=== PATIENT | male | born 1980 | race African-American/Black ===

== ENCOUNTER 2016-04-20 12:16 | Emergency (ER) | payer BC ==
[~2016-04-20] VITALS: Ht 180.3 cm; Wt 93.0 kg
[~2016-04-20 12:16] MED LIST: HYDR-3533 PO; INDO25CA PO; INDO50CA PO; PRED-503 PO
[2016-04-20 12:19] VITALS: BP 136/76; PULSE 84; RESP 18; TEMP 97.9; O2SAT 97
[2016-04-20] MEDS ORDERED: HYDR-3533 PO (14:43)
[2016-04-20] MEDS ORDERED: PRED-503 PO (14:43)
[2016-04-20] MEDS ORDERED: INDO50CA PO (14:43)
[2016-04-20] MEDS ORDERED: ALLO100T PO (14:53)
--- NOTE | 2016-04-20 15:09 | PD ---
HPI Chief Complaint: Pain: Acute or Chronic Time Seen by Provider: 14:30 Travel History International Travel<30 days: No Contact w/Intl Traveler<30days: No Traveled to known affect area: No History of Present Illness HPI Patient is a 35-year-old male with a history of gout since the age of 17 presenting with acute gout flare. He reports pain in the bilateral great toes and the right mid toe. Mild edema. No loss of range of motion. He denies any trauma or injury. Denies fever and chills. He states that with the exception of the great toe this is his usual location for gout. He states that he sometimes gets it in the ankles as well but they are not bothering him currently. He denies any open wounds. He denies any history of diabetes or immunocompromise states. PFSH Past Medical History Gout: Yes Social History Alcohol Use: Yes ([facility] [address]) Tobacco Use: Yes Substance Use: No Allergies-Medications (Allergen,Severity, Reaction): Coded Allergies: No Known Allergies (Unverified , 04/20/16) Reported Meds & Prescriptions Reported Meds & Active Scripts Active Allopurinol 100 Mg Tab 100 Mg PO DAILY Lortab (Hydrocodone-Acetaminophen) 5-325 Mg Tab 1 Tab PO Q4H PRN Deltasone (Prednisone) 20 Mg Tab 20 Mg PO BID Indomethacin 50 Mg Cap 50 Mg PO TID Take with food, milk, or antacids to decrease stomach adverse effects. Review of Systems Except as stated in HPI: all other systems reviewed are Neg Physical Exam Narrative GENERAL: Well-developed and well-nourished adult male in no acute distress. SKIN: Warm and dry. Good turgor without tenting. HEAD: Normocephalic and atraumatic. EYES: PERRL bilaterally, 5mm. EOMI bilaterally. No injection or icterus present. No proptosis. Lids without edema or erythema. NECK: Supple, no midline tenderness, crepitus or step-offs. Trachea midline, no JVD. No cervical or facial lymphadenopathy. CARDIOVASCULAR: Regular rate and rhythm without murmurs, rubs, clicks or gallops. Dorsalis pedis and posterior tibial pulses 2+ bilaterally. Capillary refill less than 2 seconds distal tip of all 10 toes. RESPIRATORY: Clear to auscultation bilaterally with symmetrical rise and fall, no distress or use of accessory muscles. MUSCULOSKELETAL: Patient has some edema, mild erythema and warmth at the MTP joints bilateral great toes. The right third digit has a small amount of edema and warmth proximally with some tenderness to palpation but has normal range of motion in all 10 toes. The pain is swelling on the dorsum of the foot or in the ankle and normal range of motion in the bilateral ankles. Patient has no open wounds on the feet. Antalgic gait. Patient freely moving all four extremities spontaneously. Extremities without clubbing or cyanosis. No obvious deformities. NEUROLOGIC: CN II-XII grossly intact. Awake and alert. Motor grossly within normal limits. Normal speech. PSYCHIATRIC: Appropriate mood and affect; insight and judgment normal. Data Data Last Documented VS Vital Signs Date Time Temp Pulse Resp B/P Pulse Ox O2 Delivery O2 Flow Rate FiO2 04/20/16 12:19 97.9 84 18 136/76 97 Room Air MDM Medical Decision Making Medical Screen Exam Complete: Yes Emergency Medical Condition: Yes Differential Diagnosis Gout versus pseudogout versus cellulitis versus septic joint unlikely Narrative Course A 35-year-old male with a history of gout was been noncompliant with control medications in the past presenting with history and physical suggestive of gout flare. He is afebrile and nontoxic. Denies any injuries. No open wounds. The areas in the normal area of his gout flares. He is neurovascular intact. Patient was given prescription for steroids, indomethacin and a short course of Lortab. I made it clear to the patient that we cannot continue to treat his acute gout with a medicines here in he was understanding. Ice 20 to him that we will give him a prescription for allopurinol to begin once the flare is over to prevent new flares that he needs to see a PCP to have this managed chronically. He acknowledged his understanding. Patient was told to return if symptoms worsen or he develops any inability to bear weight, loss of range of motion, fevers.See discharge paperwork for further instructions. The plan was discussed with the patient who acknowledged their understanding and agreement. Reinforced the follow-up with primary care is critically important. Patient instructed on emergent conditions that should prompt return to ED. Diagnosis Primary Impression: Acute gouty arthritis Patient Instructions: General Instructions, Gout (ED) Additional Instructions: Take medications as prescribed Your medications may cause drowsiness. Do not take with alcohol or sedatives. Do not operate a motor vehicle or heavy machinery while on medication. Begin taking the allopurinol after gout flare resolves, this medicine will help to prevent gout flares Apply ice every 1 to 2 hours as needed for pain Avoid maneuvers that aggravate pain Elevate when at rest Follow-up with PCP in 2-3 days Return to the ED for any acute worsening of symptoms Med/Other Pt SpecificInfo: Prescription(s) given Scripts Allopurinol 100 Mg [id number] Mg PO DAILY #30 TAB Ref 0 Prov:Chio Gavin MD 04/20/16 Hydrocodone-Acetaminophen (Lortab)5-325 Mg Tab1 Tab PO Q4H PRN (PAIN) #12 TAB Prov:Chio Gavin MD 04/20/16 Prednisone (Deltasone)20 Mg Tab20 Mg PO BID #10 TAB Prov:Chio Gavin MD 04/20/16 Indomethacin 50 Mg Cap50 Mg PO TID #30 CAP Ref 0 Take with food, milk, or antacids to decrease stomach adverse effects. Prov:Chio Gavin MD 04/20/16 Disposition: 01 DISCHARGE HOME Condition: Stable Alek Morfin III Apr 20, 2016 15:09
== END 2016-04-20 15:22 | disposition home or self-care (01) ==
LOC: NEPB 12:16
DX: M1A.9XX0 Chronic gout, unspecified, without tophus (tophi) (principal); Z72.0 Tobacco use
CPT/HCPCS: 99283

== ENCOUNTER 2016-05-25 14:07 | Emergency (ER) | payer BC ==
[~2016-05-25] VITALS: Ht 180.3 cm; Wt 93.0 kg
[~2016-05-25 14:07] MED LIST changes: +ALLO100T PO; -INDO25CA PO
[2016-05-25 14:10] VITALS: BP 123/73; PULSE 92; RESP 16; TEMP 98.3; O2SAT 96
[2016-05-25] MEDS ORDERED: SODIUM CHLOR 0.9% 1000 ML INJ 1,000 ML IV ONE (14:30)
[2016-05-25] MEDS ORDERED: KETOROLAC TROMETHAMINE 30 MG/ML (IVP) VIAL IV PUSH ONE (14:30)
--- NOTE | 2016-05-25 14:44 | PD ---
HPI Chief Complaint: Skin Problem Time Seen by Provider: 14:38 Travel History International Travel<30 days: No Contact w/Intl Traveler<30days: No Traveled to known affect area: No History of Present Illness HPI Patient comes in complaining of left elbow pain ongoing for approximately 2 weeks. Patient states he thinks this is his bursitis flaring up. Patient states today pain got so bad he is unable to move his elbow. He denies any fevers with this. Patient denies taking medication or doing anything else for it. Denies any trauma, numbness or tingling anywhere, or IV drug use. Patient describes a sharp stabbing pain which radiates throughout his left elbow. PFSH Past Medical History Gout: Yes Social History Alcohol Use: Yes (occ) Tobacco Use: Yes Substance Use: No Allergies-Medications (Allergen,Severity, Reaction): Coded Allergies: No Known Allergies (Unverified , 05/25/16) Reported Meds & Prescriptions Reported Meds & Active Scripts Active Indomethacin 50 Mg Cap 50 Mg PO Q8HR PRN Take with food, milk, or antacids to decrease stomach adverse effects. Allopurinol 100 Mg Tab 100 Mg PO DAILY Lortab (Hydrocodone-Acetaminophen) 5-325 Mg Tab 1 Tab PO Q4H PRN Deltasone (Prednisone) 20 Mg Tab 20 Mg PO BID Indomethacin 50 Mg Cap 50 Mg PO TID Take with food, milk, or antacids to decrease stomach adverse effects. Review of Systems Except as stated in HPI: all other systems reviewed are Neg Physical Exam Narrative GENERAL: Well-developed, well nourished, in no acute distress, and non-ill appearing. SKIN: Warm and dry. HEAD: Atraumatic. Normocephalic. EYES: Pupils equal and round. EOMI. No scleral icterus. No injection or drainage. ENT: No nasal bleeding or discharge. Mucous membranes pink and moist. NECK: Trachea midline. Supple. No nuclear rigidity. CARDIOVASCULAR: Radial pulses 2+, intact, and equal bilaterally. Capillary refill less than 2 seconds. RESPIRATORY: No accessory muscle use. No respiratory distress. MUSCULOSKELETAL: No obvious deformities. No clubbing. No cyanosis. No edema. Decreased range of motion left elbow secondary to pain. Elbow : No laxity noted with varus and valgus maneuvers. Pulses equal BL distal to injury. Capillary refill less than 2 seconds distal to injury and equal BL. FROM distal to injury and equal BL. Strength distal to injury equal BL. NV intact distal to injury and equal BL. Flexion and extension of thumb equal BL. Equal strength and movement with abduction/adductions of BL fingers. [employer] strength equal BL. Patient is unable to flex or extend left elbow from current position with passive or active motion. Patient reports tenderness palpation throughout his left elbow. Left posterior elbow feels somewhat febrile compared to adjacent skin. There is no large fluid collection appreciated. NEUROLOGICAL: Awake and alert. No obvious cranial nerve deficits. Motor grossly within normal limits. Normal speech. PSYCHIATRIC: Appropriate mood and affect; insight and judgment normal. Data Data Last Documented VS Vital Signs Date Time Temp Pulse Resp B/P Pulse Ox O2 Delivery O2 Flow Rate FiO2 05/25/16 14:10 98.3 92 16 123/73 96 Room Air Orders Complete Blood Count With Diff (05/25/16 14:25) Comprehensive Metabolic Panel (05/25/16 14:25) Lactic Acid Sepsis Protocol (05/25/16 14:25) Blood Culture (05/25/16 14:25) Ecg Monitoring (05/25/16 14:25) Iv Access Insert/Monitor (05/25/16 14:25) Oximetry (05/25/16 14:25) C-Reactive Protein (Crp) (05/25/16 14:25) Elbow, Complete (4 Vws) (05/25/16 ) Uric Acid (05/25/16 14:25) Ketorolac Inj (Toradol Inj) (05/25/16 14:30) Sodium Chlor 0.9% 1000 Ml Inj (Ns 1000 M (05/25/16 14:30) Splint Or Brace Apply/Monitor (05/25/16 16:30) Labs Laboratory Tests Test 05/25/16 15:20 White Blood Count 6.9 TH/MM3 Red Blood Count 4.39 MIL/MM3 Hemoglobin 14.2 GM/DL Hematocrit 42.7 % Mean Corpuscular Volume 97.4 FL Mean Corpuscular Hemoglobin 32.4 PG Mean Corpuscular Hemoglobin 33.3 % Concent Red Cell Distribution Width 15.3 % Platelet Count 300 TH/MM3 Mean Platelet Volume 9.0 FL Neutrophils (%) (Auto) 68.9 % Lymphocytes (%) (Auto) 21.4 % Monocytes (%) (Auto) 8.1 % Eosinophils (%) (Auto) 0.8 % Basophils (%) (Auto) 0.8 % Neutrophils # (Auto) 4.7 TH/MM3 Lymphocytes # (Auto) 1.5 TH/MM3 Monocytes # (Auto) 0.6 TH/MM3 Eosinophils # (Auto) 0.1 TH/MM3 Basophils # (Auto) 0.1 TH/MM3 CBC Comment DIFF FINAL Differential Comment Sodium Level 141 MEQ/L Potassium Level 4.0 MEQ/L Chloride Level 106 MEQ/L Carbon Dioxide Level 30.0 MEQ/L Anion Gap 5 MEQ/L Blood Urea Nitrogen 5 MG/DL Creatinine 0.91 MG/DL Estimat Glomerular Filtration 114 ML/MIN Rate Random Glucose 95 MG/DL Lactic Acid Level 0.9 mmol/L Uric Acid 7.3 MG/DL Calcium Level 9.1 MG/DL Total Bilirubin 0.9 MG/DL Aspartate Amino Transf 12 U/L (AST/SGOT) Alanine Aminotransferase 21 U/L (ALT/SGPT) Alkaline Phosphatase 58 U/L C-Reactive Protein 0.42 MG/DL Total Protein 7.5 GM/DL Albumin 4.1 GM/DL [facility] Medical Decision Making Medical Screen Exam Complete: Yes Emergency Medical Condition: Yes Differential Diagnosis Bursitis, septic bursitis, pseudogout, septic joint, arthritis, fracture, other Narrative Course 1600 patient reassessed resting comfortably in bed. In no acute distress. Patient reports improvement of symptoms status post Toradol injection and reports increased range of motion and is now able to bend and flex his arm looks greater mobility. The patient appears to have acute gouty arthritis involving the left elbow. There is no laboratory evidence to suggest infectious, septic joint at this time. There was no significant erythema, heat, swelling or fluctuance. The patient has had no distal or local trauma, cuts or abrasions. There has been no fever. The patient has had similar episodes and has a history of gout. There is no trauma to suspect contusion, strain or fracture. There is no evidence to suggest occult fracture or bony tumor by x-ray. There is no clinical evidence to suggest bursitis, tendonitis, osteoarthritis, Rheumatoid arthritis, or septic arthritis. The patient was placed on NSAID medication and the patient was instructed on ice packs as well. The patient was instructed to follow up primary care doctor and/or orthopedics. The patient agreed with plan. Patient in no obvious distress upon re-evaluation. All pertinent laboratory/ Radiology result(s) discussed with patient. I discussed patient with Dr. Lindo , who saw and evaluated the patient and is in agreement with plan of care and disposition. Any questions/concerns in reference to patient diagnosis/ condition discussed and clarified prior to patient's discharge. Reinforced sheer importance of close follow up with patient's primary physician or primary care clinic. Instructed patient to return to ED immediately, if symptoms return/ worsen. Pt showed understanding of above instructions. Further instructions and recommendations were detailed in discharge paperwork. Pt ambulated without difficulty out of ED at discharge. Diagnosis Primary Impression: Acute gouty arthritis Referrals: Fahad Marie MD [facility] Patient Instructions: General Instructions, Gout (ED), Pseudogout (ED) Additional Instructions: Follow-up with your primary care physician and/or orthopedics this week for reevaluation. Take all medication as prescribed. Wear Harshad wrap for comfort. Apply ice affected area 20 minutes per hour as needed for pain. Return to the emergency department if symptoms get worse, develop a fever, inability to move the elbow, or for other emergent concerns. Med/Other Pt SpecificInfo: Prescription(s) given Scripts Indomethacin 50 Mg Cap50 Mg PO Q8HR PRN (PAIN SCALE 1 TO 10) #21 CAP Ref 0 Take with food, milk, or antacids to decrease stomach adverse effects. Prov:Comfort Lindo MD 05/25/16 Disposition: 01 DISCHARGE HOME Condition: Stable Brandon Lebron May 25, 2016 14:44
--- NOTE | 2016-05-25 15:16 | RADRPT ---
EXAM DATE/TIME: 05/25/2016 14:54 [facility] COMPARISON: No previous studies available for comparison. INDICATIONS : Pain from possible bursitis. MEDICAL HISTORY : Bursitis, left elbow. SURGICAL HISTORY : None. ENCOUNTER: Initial ACUITY: 1 day PAIN SCORE: 3/10 LOCATION: Left posterior elbow. FINDINGS: Multiple view examination of the left elbow demonstrates soft tissue swelling without joint effusion, or fracture. The osseous structures are in normal alignment. Bony mineralization is normal. CONCLUSION: Soft tissue swelling without fracture. rDake Rocha MD on May 25, 2016 at 15:15 Board Certified Radiologist. This report was verified electronically.
[2016-05-25 15:36] LABS: AUTOMATED NEUTROPHIL # 4.7 TH/MM3 (1.8-7.7); BASOPHIL # 0.1 TH/MM3 (0-0.2); BASOPHIL % 0.8 % (0.0-2.0); EOSINOPHIL # 0.1 TH/MM3 (0-0.4); EOSINOPHIL % 0.8 % (0.0-4.0); HEMATOCRIT 42.7 % (39.0-51.0); HEMO FLAGS DIFF FINAL; LYMPH % 21.4 % (9.0-44.0); LYMPHOCYTE # 1.5 TH/MM3 (1.0-4.8); MEAN CELL VOLUME 97.4 FL (80.0-100.0); MEAN CORPUSCULAR HEMOGLOBIN 32.4 PG (27.0-34.0); MEAN CORPUSCULAR HGB CONC 33.3 % (32.0-36.0); MONO % 8.1 % (0.0-8.0); NEUT % 68.9 % (16.0-70.0); PLATELET COUNT 300 TH/MM3 (150-450); RED BLOOD COUNT 4.39 MIL/MM3 (4.50-5.90); RED CELL DISTRIBUTION WIDTH 15.3 % (11.6-17.2); WHITE BLOOD COUNT 6.9 TH/MM3 (4.0-11.0)
[2016-05-25 16:10] LABS: ALT (GPT) 21 U/L (12-78); ANION GAP 5 MEQ/L (5-15); AST (GOT) 12 U/L (15-37); BLOOD UREA NITROGEN 5 MG/DL (7-18); CHLORIDE 106 MEQ/L (98-107); GLOMERULAR FILTRATION RATE 114 ML/MIN (>89); SODIUM (NA) 141 MEQ/L (136-145); URIC ACID 7.3 MG/DL (2.6-7.2)
[2016-05-25 16:12] LABS: ALKALINE PHOSPHATASE 58 U/L (45-117); TOTAL BILIRUBIN ADULT 0.9 MG/DL (0.2-1.0)
[2016-05-25] MEDS ORDERED: INDO50CA PO (16:33)
== END 2016-05-25 16:49 | disposition home or self-care (01) ==
LOC: NEPB 14:07
DX: M10.9 Gout, unspecified (principal); Z72.0 Tobacco use
CPT/HCPCS: 73080; 80053; 83605; 84550; 85025; 86140; 87040; 96361; 96374; 99283; J1885; J7030

== ENCOUNTER 2016-06-28 08:26 | Emergency (ER) | payer BC ==
[~2016-06-28] VITALS: Ht 180.3 cm; Wt 95.0 kg
[2016-06-28 08:28] VITALS: BP 130/80; PULSE 90; RESP 16; TEMP 97.4; O2SAT 95
--- NOTE | 2016-06-28 08:44 | PD ---
Physical Exam Date Seen by Provider: Jun 28, 2016 Time Seen by Provider: 08:41 Narrative Pt is a 35 year old male with c/o right hand pain. Pt states he has a history of gout. No recent injury or trauma reported. Pain is a 10/10 and pt describes it as throbbing and aching. VSS, pt in no acute distress. Pt placed in TR4. Data Data Last Documented VS Vital Signs Date Time Temp Pulse Resp B/P Pulse Ox O2 Delivery O2 Flow Rate FiO2 06/28/16 08:28 97.4 90 16 130/80 95 Room Air MDM Supervised Visit with PIA: Patricia Abernathy Jun 28, 2016 08:44
--- NOTE | 2016-06-28 09:55 | PD ---
HPI Chief Complaint: Pain: Acute or Chronic Time Seen by Provider: 09:53 Travel History International Travel<30 days: No Contact w/Intl Traveler<30days: No Traveled to known affect area: No History of Present Illness HPI 35-year-old male with a history of gout presents to the emergency department for evaluation of right hand and wrist pain. Patient states that for the past 4 -5 days he's had worsening swelling and pain in his right hand and wrist, specifically worse in the right fourth finger. Denies any injury or trauma to the hand or wrist. States that he has a long history of gout and has had the pain in his hand and wrist before. States that he has not been taking the allopurinol that he was prescribed last time he was in our emergency department because he reviews on the medication that he did not like. He does continue to drink alcohol regularly. Denies any other medical conditions. Denies any fever , chills, nausea, vomiting, nose or tingling, weakness. No other complaints. PFSH Past Medical History Diminished Hearing: No Gout: Yes Tetanus Vaccination: < 5 Years Influenza Vaccination: No Past Surgical History Surgical History: No Previous Surgery Social History Alcohol Use: Yes (occ) Tobacco Use: Yes Substance Use: No Allergies-Medications (Allergen,Severity, Reaction): Coded Allergies: No Known Allergies (Unverified , 05/25/16) Reported Meds & Prescriptions Reported Meds & Active Scripts Active No Active Prescriptions or Reported Medications Review of Systems Except as stated in HPI: all other systems reviewed are Neg Physical Exam Narrative GENERAL: Well-nourished and well-developed male patient in no acute distress who is nontoxic appearing. SKIN: Warm and dry. HEAD: Normocephalic and atraumatic. EYES: No injection, drainage, or hyphema noted. PERRLA. EOMI. ENT: No nasal drainage noted. Oropharynx is clear. NECK: Supple and the trachea is midline. CARDIOVASCULAR: Regular rate and rhythm. RESPIRATORY: Breath sounds are equal bilaterally with no accessory muscle use, wheezing, rhonchi, or crackles. EXTREMITY: Right hand with mild swelling over the dorsal aspect and the right wrist. Erythema, warmth and swelling to the fourth PIP. Full range of motion in all joints however there is painful range of motion. Normal opposition of thumb. Distal extremity neurovascularly intact with intact two point discrimination. NEUROLOGICAL: Awake, alert, and oriented. Normal speech and gait. Cranial nerves are grossly intact. Data Data Last Documented VS Vital Signs Date Time Temp Pulse Resp B/P Pulse Ox O2 Delivery O2 Flow Rate FiO2 06/28/16 08:28 97.4 90 16 130/80 95 Room Air Orders Hand, Complete ([id number]) (06/28/16 ) Prednisone (Deltasone) (06/28/16 10:00) Acetamin-Hydrocod 325-5 Mg ([place] 5-325 (06/28/16 10:00) MDM Medical Decision Making Medical Screen Exam Complete: Yes Emergency Medical Condition: Yes Differential Diagnosis Acute gouty arthritis versus rheumatoid arthritis versus sprain Narrative Course 35-year-old male presents to the emergency department for evaluation of right hand and wrist pain and swelling with a history of gout. Patient is afebrile, vital signs are stable. The patient has no signs or symptoms of septic joint. Has a history of gouty arthritis. This is recurrent gout. He is refusing to take the allopurinol he was prescribed. I stressed the importance of diet modification and cessation of alcohol use to prevent recurrent gouty attacks. Hand x-ray is negative for any acute abnormalities. I have given him resources to find a primary care in the area. He'll be treated with steroids, NSAIDs and pain medication. Patient is stable for discharge. Diagnosis Primary Impression: Acute gouty arthritis Referrals: [facility] Primary Care Physician Patient Instructions: General Instructions, Gout (ED) Additional Instructions: Take medications as prescribed with food and a full glass of water. Do not take Lortab with alcohol or while driving. Follow-up with a Primary Care Physician. [facility] and [facility] are places you can try to get a primary care. Return to the ED for any acute worsening of symptoms. Med/Other Pt SpecificInfo: Prescription(s) given Scripts No Active Prescriptions or Reported Meds Disposition: 01 DISCHARGE HOME Condition: Stable Muna Nunez Jun 28, 2016 09:55
[2016-06-28] MEDS ORDERED: ACETAMINOPHEN/HYDROcodone 325 MG/5 MG TAB PO ONE (10:00)
[2016-06-28] MEDS ORDERED: predniSONE 20 MG TAB PO ONE (10:00)
--- NOTE | 2016-06-28 10:00 | RADRPT ---
EXAM DATE/TIME: 06/28/2016 09:54 [facility] COMPARISON: No previous studies available for comparison. INDICATIONS : Right hand pain with no known injury. MEDICAL HISTORY : Gout. SURGICAL HISTORY : None. ENCOUNTER: Initial ACUITY: 4 - 6 days PAIN SCORE: 10/10 LOCATION: Right Hand FINDINGS: There is no evidence of acute fracture. Bony mineralization is normal. Joint spaces are maintained. T here is increased scapholunate ligament distance which may reflect ligamentous injury. MRI is recomme nded for further evaluation if clinically indicated. CONCLUSION: 1. There is no evidence of acute fracture. Increased scapholunate distance may be related to underly ing ligamentous injury. MRI is recommended for further evaluation if clinically indicated. Abram Khan MD on June 28, 2016 at 9:58 Board Certified Radiologist. This report was verified electronically.
[2016-06-28] MEDS ORDERED: HYDR-3533 PO (10:02)
[2016-06-28] MEDS ORDERED: PRED20 PO (10:02)
[2016-06-28] MEDS ORDERED: INDO50CA PO (10:02)
== END 2016-06-28 10:18 | disposition home or self-care (01) ==
LOC: NETRI 08:26
DX: M10.9 Gout, unspecified (principal); M79.641 Pain in right hand; Z72.0 Tobacco use
CPT/HCPCS: 73130; 99283; J7512

== ENCOUNTER 2017-05-20 04:53 | Emergency (ER) | payer SELFPAY ==
[~2017-05-20] VITALS: Ht 180.3 cm; Wt 92.0 kg
[~2017-05-20 04:53] MED LIST changes: -ALLO100T PO; -PRED-503 PO; +PRED20 PO
[2017-05-20 04:55] VITALS: BP 123/73; PULSE 86; RESP 18; O2SAT 100
[2017-05-20 05:07] VITALS: BP 120/60; PULSE 80; RESP 18; O2SAT 98
--- NOTE | 2017-05-20 05:12 | PD ---
HPI Chief Complaint: Chest Pain Time Seen by Provider: 05:01 Travel History International Travel<30 days: No Contact w/Intl Traveler<30days: No Traveled to known affect area: No History of Present Illness HPI The patient is a 36-year-old male who presents to the emergency department via EMS for chest pain. The patient states he developed left-sided chest pain while In bed or watching TV at night. The symptoms have been ongoing for a year, he states he has to pound on his chest to rub his chest on the left side to make the discomfort go away. He denies any known history of hypertension, hyperlipidemia, diabetes, or early coronary artery disease. He does have a history of tobacco use. He admits to drinking alcohol earlier tonight. He denies any c shortness of breath, nausea, vomiting, or diaphoresis. Symptoms are moderate, have been ongoing for 1 year, and they are alleviated when he rubs the left side of his chest or pounds the left side of his chest. PFSH Past Medical History Diminished Hearing: No Gout: Yes Pancreatitis: Yes Tetanus Vaccination: < 5 Years Influenza Vaccination: No Past Surgical History Abdominal Surgery: Yes (laprascopic ) Social History Alcohol Use: Yes (occ) Tobacco Use: Yes Substance Use: No Allergies-Medications (Allergen,Severity, Reaction): Coded Allergies: No Known Allergies (Unverified , 05/25/16) Reported Meds & Prescriptions Reported Meds & Active Scripts Active Lortab (Hydrocodone-Acetaminophen) 5-325 Mg Tab 1 Tab PO Q6H PRN Indomethacin 50 Mg Cap 50 Mg PO TID Take with food, milk, or antacids to decrease stomach adverse effects. Prednisone 20 Mg Tab 20 Mg PO BID 5 Days Review of Systems Except as stated in HPI: all other systems reviewed are Neg General / Constitutional: No: Fever HENT: No: Lightheadedness Cardiovascular: Positive: Chest Pain or Discomfort, No: Diaphoresis, Dyspnea on exertion Respiratory: No: Shortness of Breath Gastrointestinal: No: Nausea, Vomiting, Abdominal Pain Musculoskeletal: No: Weakness, Edema Neurologic: No: Dizziness Psychiatric: Positive: Substance Abuse (Alcohol use earlier tonight) Physical Exam Narrative GENERAL: Awake, alert, 36-year-old male who appears his stated age and is in no acute respiratory distress. SKIN: Focused skin assessment warm/dry. HEAD: Atraumatic. Normocephalic. EYES: Pupils equal and round. No scleral icterus. No injection or drainage. ENT: No nasal bleeding or discharge. Breath smells of alcohol. NECK: Trachea midline. No JVD. CARDIOVASCULAR: Regular rate and rhythm. No murmur appreciated. RESPIRATORY: No accessory muscle use. Clear to auscultation. Breath sounds equal bilaterally. GASTROINTESTINAL: Abdomen soft, non-tender, nondistended. No rebound tenderness. MUSCULOSKELETAL: No obvious deformities. No clubbing. No cyanosis. No edema. NEUROLOGICAL: Awake and alert. No obvious cranial nerve deficits. Motor grossly within normal limits. Normal speech. PSYCHIATRIC: Appropriate mood and affect; insight and judgment normal. Data Data Last Documented VS Vital Signs Date Time Temp Pulse Resp B/P (MAP) Pulse Ox O2 Delivery O2 Flow Rate FiO2 05/20/17 05:07 80 18 120/60 (80) 98 Room Air Orders Orders Electrocardiogram (05/20/17 05:01) Ckmb (Isoenzyme) Profile (05/20/17 05:01) Complete Blood Count With Diff (05/20/17 05:01) Comprehensive Metabolic Panel (05/20/17 05:01) Magnesium (Mg) (05/20/17 05:01) Prothrombin Time / Inr (Pt) (05/20/17 05:01) Act Partial Throm Time (Ptt) (05/20/17 05:01) Troponin I (05/20/17 05:01) Lipase (05/20/17 05:01) Chest, Single Ap (05/20/17 05:01) Ecg Monitoring (05/20/17 05:01) Bilateral Bp Monitoring (05/20/17 05:01) Iv Access Insert/Monitor (05/20/17 05:01) Oximetry (05/20/17 05:01) Oxygen Administration (05/20/17 05:01) Aspirin Chew (Aspirin Chew) (05/20/17 05:15) Sodium Chloride 0.9% Flush (Ns Flush) (05/20/17 05:15) Sodium Chlorid 0.9% 500 Ml Inj (Ns 500 M (05/20/17 05:15) Alcohol (Ethanol) (05/20/17 05:01) CKMB (05/20/17 05:00) CKMB% (05/20/17 05:00) Labs Laboratory Tests Test 05/20/17 05:00 White Blood Count 4.6 TH/MM3 Red Blood Count 4.37 MIL/MM3 Hemoglobin 14.6 GM/DL Hematocrit 42.2 % Mean Corpuscular Volume 96.4 FL Mean Corpuscular Hemoglobin 33.4 PG Mean Corpuscular Hemoglobin Concent 34.6 % Red Cell Distribution Width 14.8 % Platelet Count 234 TH/MM3 Mean Platelet Volume 8.3 FL Neutrophils (%) (Auto) 30.5 % Lymphocytes (%) (Auto) 56.1 % Monocytes (%) (Auto) 9.6 % Eosinophils (%) (Auto) 3.7 % Basophils (%) (Auto) 0.1 % Neutrophils # (Auto) 1.4 TH/MM3 Lymphocytes # (Auto) 2.6 TH/MM3 Monocytes # (Auto) 0.4 TH/MM3 Eosinophils # (Auto) 0.2 TH/MM3 Basophils # (Auto) 0.0 TH/MM3 CBC Comment DIFF FINAL Differential Comment Prothrombin Time 9.8 SEC Prothromb Time International Ratio 1.0 RATIO Activated Partial Thromboplast Time 27.6 SEC Blood Urea Nitrogen 8 MG/DL Creatinine 0.82 MG/DL Random Glucose 94 MG/DL Total Protein 7.9 GM/DL Albumin 4.3 GM/DL Calcium Level 8.3 MG/DL Magnesium Level 2.3 MG/DL Alkaline Phosphatase 99 U/L Aspartate Amino Transf (AST/SGOT) 24 U/L Alanine Aminotransferase (ALT/SGPT) 18 U/L Total Bilirubin 0.2 MG/DL Sodium Level 143 MEQ/L Potassium Level 4.0 MEQ/L Chloride Level 108 MEQ/L Carbon Dioxide Level 25.5 MEQ/L Anion Gap 10 MEQ/L Estimat Glomerular Filtration Rate 127 ML/MIN Total Creatine Kinase 313 U/L Troponin I LESS THAN 0.02 NG/ML Lipase 173 U/L Ethyl Alcohol Level 356 MG/DL [facility] Medical Decision Making Medical Screen Exam Complete: Yes Emergency Medical Condition: Yes Medical Record Reviewed: Yes Interpretation(s) EKG reveals normal sinus rhythm with a rate 88. Q-wave noted in lead V1 and V2. Laboratory Tests Test 05/20/17 05:00 White Blood Count 4.6 TH/MM3 Red Blood Count 4.37 MIL/MM3 Hemoglobin 14.6 GM/DL Hematocrit 42.2 % Mean Corpuscular Volume 96.4 FL Mean Corpuscular Hemoglobin 33.4 PG Mean Corpuscular Hemoglobin Concent 34.6 % Red Cell Distribution Width 14.8 % Platelet Count 234 TH/MM3 Mean Platelet Volume 8.3 FL Neutrophils (%) (Auto) 30.5 % Lymphocytes (%) (Auto) 56.1 % Monocytes (%) (Auto) 9.6 % Eosinophils (%) (Auto) 3.7 % Basophils (%) (Auto) 0.1 % Neutrophils # (Auto) 1.4 TH/MM3 Lymphocytes # (Auto) 2.6 TH/MM3 Monocytes # (Auto) 0.4 TH/MM3 Eosinophils # (Auto) 0.2 TH/MM3 Basophils # (Auto) 0.0 TH/MM3 CBC Comment DIFF FINAL Differential Comment Prothrombin Time 9.8 SEC Prothromb Time International Ratio 1.0 RATIO Activated Partial Thromboplast Time 27.6 SEC Blood Urea Nitrogen 8 MG/DL Creatinine 0.82 MG/DL Random Glucose 94 MG/DL Total Protein 7.9 GM/DL Albumin 4.3 GM/DL Calcium Level 8.3 MG/DL Magnesium Level 2.3 MG/DL Alkaline Phosphatase 99 U/L Aspartate Amino Transf (AST/SGOT) 24 U/L Alanine Aminotransferase (ALT/SGPT) 18 U/L Total Bilirubin 0.2 MG/DL Sodium Level 143 MEQ/L Potassium Level 4.0 MEQ/L Chloride Level 108 MEQ/L Carbon Dioxide Level 25.5 MEQ/L Anion Gap 10 MEQ/L Estimat Glomerular Filtration Rate 127 ML/MIN Total Creatine Kinase 313 U/L Troponin I LESS THAN 0.02 NG/ML Lipase 173 U/L Ethyl Alcohol Level 356 MG/DL Chest x-ray reveals no acute disease Differential Diagnosis Differential diagnosis includes ACS, anxiety, GERD, esophageal spasm, pancreatitis, pleural effusion, pneumonia. Narrative Course IV was established, labs were drawn and sent, the patient was placed on cardiac telemetry monitoring and continuous pulse oximetry monitoring. EKG was ordered and interpreted. Chest x-ray was obtained. The patient received aspirin prior to arrival by EMS. The patient's symptoms are atypical, current night and at rest, or improved by pounding on rubbing on the chest. Patient has no risk factors except for tobacco use. Therefore, initial troponin was ordered, if negative, 3 hour troponin level will be ordered. Initial troponin was negative , less than 0.02. Alcohol level is elevated at 356. The patient will have a second troponin at the 3 hour level, 8:01 AM. If negative the patient be discharged home. Diagnosis Primary Impression: Atypical chest pain Additional Impression: Alcohol intoxication Qualified Codes: F10.920 - Alcohol use, unspecified with intoxication, uncomplicated Additional Instructions: Decrease alcohol intake. Take a baby aspirin daily. Follow-up with your primary physician. Return if symptoms worsen or progress. Condition: Stable Luis Ledbetter MD May 20, 2017 05:12
[2017-05-20 05:15] LABS: AUTOMATED NEUTROPHIL # 1.4 TH/MM3 (1.8-7.7); BASOPHIL % 0.1 % (0.0-2.0); EOSINOPHIL # 0.2 TH/MM3 (0-0.4); EOSINOPHIL % 3.7 % (0.0-4.0); HEMATOCRIT 42.2 % (39.0-51.0); HEMOGLOBIN 14.6 GM/DL (13.0-17.0); LYMPH % 56.1 % (9.0-44.0); LYMPHOCYTE # 2.6 TH/MM3 (1.0-4.8); MEAN CELL VOLUME 96.4 FL (80.0-100.0); MEAN CORPUSCULAR HEMOGLOBIN 33.4 PG (27.0-34.0); MEAN CORPUSCULAR HGB CONC 34.6 % (32.0-36.0); MEAN PLATELET VOLUME 8.3 FL (7.0-11.0); MONO % 9.6 % (0.0-8.0); MONOCYTE # 0.4 TH/MM3 (0-0.9); NEUT % 30.5 % (16.0-70.0); PLATELET COUNT 234 TH/MM3 (150-450); RED BLOOD COUNT 4.37 MIL/MM3 (4.50-5.90); RED CELL DISTRIBUTION WIDTH 14.8 % (11.6-17.2); WHITE BLOOD COUNT 4.6 TH/MM3 (4.0-11.0)
[2017-05-20] MEDS ORDERED: ASPIRIN 81 MG CHEW TAB PO ONE (05:15)
[2017-05-20] MEDS ORDERED: SODIUM CHLORIDE 0.9% FLUSH 10 ML FLUSH IVF PRN (05:15)
[2017-05-20] MEDS ORDERED: SODIUM CHLORID 0.9% 500 ML INJ 500 ML IV ONE (05:15)
[2017-05-20 05:24] LABS: PROTHROMBIN TIME - PATIENT 9.8 SEC (9.8-11.6)
--- NOTE | 2017-05-20 05:26 | RADRPT ---
EXAM DATE/TIME: 05/20/2017 05:05 [place] COMPARISON: No previous studies available for comparison. INDICATIONS : Chest pain in center of chest for one year, no shortness of breath, smoker MEDICAL HISTORY : None. SURGICAL HISTORY : None. ENCOUNTER: Initial ACUITY: 1 year PAIN SCORE: Non-responsive. LOCATION: Bilateral chest FINDINGS: A single view of the chest demonstrates the lungs to be symmetrically aerated without evidence of mas s, infiltrate or effusion. The cardiomediastinal contours are unremarkable. Osseous structures are intact. CONCLUSION: No acute disease. Konstantin Hooks MD on May 20, 2017 at 5:25 Board Certified Radiologist. This report was verified electronically.
[2017-05-20 05:28] LABS: ALBUMIN 4.3 GM/DL (3.4-5.0); AST (GOT) 24 U/L (15-37); BICARBONATE 25.5 MEQ/L (21.0-32.0); BLOOD UREA NITROGEN 8 MG/DL (7-18); CALCIUM 8.3 MG/DL (8.5-10.1); CHLORIDE 108 MEQ/L (98-107); CREATININE 0.82 MG/DL (0.60-1.30); GLOMERULAR FILTRATION RATE 127 ML/MIN (>89); GLUCOSE,RANDOM 94 MG/DL (74-106); MAGNESIUM 2.3 MG/DL (1.5-2.5); SODIUM (NA) 143 MEQ/L (136-145)
[2017-05-20 05:29] LABS: ALT (GPT) 18 U/L (12-78)
[2017-05-20 05:33] LABS: ALKALINE PHOSPHATASE 99 U/L (45-117); TOTAL BILIRUBIN ADULT 0.2 MG/DL (0.2-1.0); TOTAL PROTEIN 7.9 GM/DL (6.4-8.2); TROPONIN I LESS THAN 0.02 NG/ML (0.02-0.05)
--- NOTE | 2017-05-20 09:12 | PD ---
Data Data Last Documented VS Vital Signs Date Time Temp Pulse Resp B/P (MAP) Pulse Ox O2 Delivery O2 Flow Rate FiO2 05/20/17 09:24 05/20/17 09:20 80 15 99 Room Air Orders Orders Electrocardiogram (05/20/17 05:01) Ckmb (Isoenzyme) Profile (05/20/17 05:01) Complete Blood Count With Diff (05/20/17 05:01) Comprehensive Metabolic Panel (05/20/17 05:01) Magnesium (Mg) (05/20/17 05:01) Prothrombin Time / Inr (Pt) (05/20/17 05:01) Act Partial Throm Time (Ptt) (05/20/17 05:01) Troponin I (05/20/17 05:01) Lipase (05/20/17 05:01) Chest, Single Ap (05/20/17 05:01) Ecg Monitoring (05/20/17 05:01) Bilateral Bp Monitoring (05/20/17 05:01) Iv Access Insert/Monitor (05/20/17 05:01) Oximetry (05/20/17 05:01) Oxygen Administration (05/20/17 05:01) Aspirin Chew (Aspirin Chew) (05/20/17 05:15) Sodium Chloride 0.9% Flush (Ns Flush) (05/20/17 05:15) Sodium Chlorid 0.9% 500 Ml Inj (Ns 500 M (05/20/17 05:15) Alcohol (Ethanol) (05/20/17 05:01) CKMB (05/20/17 05:00) CKMB% (05/20/17 05:00) Troponin I (05/20/17 08:01) Ed Discharge Order (05/20/17 09:21) Labs Laboratory Tests Test 05/20/17 05:00 05/20/17 08:00 White Blood Count 4.6 TH/MM3 Red Blood Count 4.37 MIL/MM3 Hemoglobin 14.6 GM/DL Hematocrit 42.2 % Mean Corpuscular Volume 96.4 FL Mean Corpuscular Hemoglobin 33.4 PG Mean Corpuscular Hemoglobin Concent 34.6 % Red Cell Distribution Width 14.8 % Platelet Count 234 TH/MM3 Mean Platelet Volume 8.3 FL Neutrophils (%) (Auto) 30.5 % Lymphocytes (%) (Auto) 56.1 % Monocytes (%) (Auto) 9.6 % Eosinophils (%) (Auto) 3.7 % Basophils (%) (Auto) 0.1 % Neutrophils # (Auto) 1.4 TH/MM3 Lymphocytes # (Auto) 2.6 TH/MM3 Monocytes # (Auto) 0.4 TH/MM3 Eosinophils # (Auto) 0.2 TH/MM3 Basophils # (Auto) 0.0 TH/MM3 CBC Comment DIFF FINAL Differential Comment Prothrombin Time 9.8 SEC Prothromb Time International Ratio 1.0 RATIO Activated Partial Thromboplast Time 27.6 SEC Blood Urea Nitrogen 8 MG/DL Creatinine 0.82 MG/DL Random Glucose 94 MG/DL Total Protein 7.9 GM/DL Albumin 4.3 GM/DL Calcium Level 8.3 MG/DL Magnesium Level 2.3 MG/DL Alkaline Phosphatase 99 U/L Aspartate Amino Transf (AST/SGOT) 24 U/L Alanine Aminotransferase (ALT/SGPT) 18 U/L Total Bilirubin 0.2 MG/DL Sodium Level 143 MEQ/L Potassium Level 4.0 MEQ/L Chloride Level 108 MEQ/L Carbon Dioxide Level 25.5 MEQ/L Anion Gap 10 MEQ/L Estimat Glomerular Filtration Rate 127 ML/MIN Total Creatine Kinase 313 U/L Creatine Kinase MB 2.0 NG/ML Creatine Kinase MB % 0.6 % Troponin I LESS THAN 0.02 NG/ML LESS THAN 0.02 NG/ML Lipase 173 U/L Ethyl Alcohol Level 356 MG/DL [facility] Supervised Visit with PIA: No Narrative Course Patient care assumed from Dr. Luis Ledbetter at 0700: This is a 36-year-old male presents emergency Department with chest pain, significantly intoxicated on arrival the patient ambulated to the bathroom multiple times awaiting for a second troponin. On my physical exam his chest pain is resolved, fairly typical according to Dr. Ledbetter's notes, he is fairly low risk but is concerned because his family members had had heart attacks in their 50s and 60s. He is a smoker and he was counseled on smoking cessation at length. Clinically sober at this time the patient is stable for discharge, discussed drinking and smoking cessation, return to ED criteria follow-up with a primary care physician. He is going to call a ride home if we cannot find a bus pass form. Diagnosis Primary Impression: Atypical chest pain Additional Impression: Alcohol intoxication Qualified Codes: F10.920 - Alcohol use, unspecified with intoxication, uncomplicated Referrals: [facility] Additional Instruction: Decrease alcohol intake. Take a baby aspirin daily. Follow-up with your primary physician. Return if symptoms worsen or progress. Disposition: 01 DISCHARGE HOME Condition: Stable Deshaun Meyer MD May 20, 2017 09:12
[2017-05-20 09:20] VITALS: BP 119/69; PULSE 80; RESP 15; O2SAT 99
--- NOTE | 2017-05-20 20:36 | EKG ---
Date Performed: 05/20/2017 Time Performed: 04:54:05 PTAGE: 36 years EKG: Sinus rhythm POSSIBLE LEFT ATRIAL ENLARGEMENT SEPTAL MYOCARDIAL INFARCTION ABNORMAL ECG NO PREVIOUS TRACING DOCTOR: Zuleika Gallo Interpretating Date/Time 05/20/2017 20:34:42
== END 2017-05-20 09:31 | disposition home or self-care (01) ==
LOC: NEPC 04:53
DX: R07.89 Other chest pain (principal); F10.920 Alcohol use, unspecified with intoxication, uncomplicated; F17.210 Nicotine dependence, cigarettes, uncomplicated; Y90.8 Blood alcohol level of 240 mg/100 ml or more; Z79.82 Long term (current) use of aspirin; Z79.899 Other long term (current) drug therapy
CPT/HCPCS: 71045; 80053; 80307; 82550; 82552; 83690; 83735; 84484; 85025; 85610; 85730; 93005; 99285